=== PATIENT | male | born 1965 | race Caucasian/White ===

== ENCOUNTER 2017-12-06 11:39 | Emergency (ER) | payer BC, OTHER ==
[2017-12-06] MEDS ORDERED: NORMAL SALINE 1000 ML 1,000 ML IV ONE (12:29)
--- NOTE | 2017-12-06 12:33 | ER Document Report ---
ED Medical Screen (RME) - General Chief Complaint: Neck Pain >24hrs old Stated Complaint: NECK/ARM PAIN Time Seen by Provider: 12/06/17 12:03 Mode of Arrival: Ambulatory Information source: Patient TRAVEL OUTSIDE OF THE [place] IN LAST 30 DAYS: No - HPI Patient complains to provider of: multiple complaints Notes: 12/06/17 12:32 Patient is here with multiple complaints. States that he drinks alcohol and parties hard. Believes that he slightly dehydrated. He thinks he may have an infection. Here complaining of left shoulder and arm discomfort. No injury. He denies any chest pain or shortness of breath. States that he has been really stressed lately due to losing his mother recently. Physical exam: Nontoxic-appearing, no distress. An initial examination was made on the patient as part of the triage process, and it was determined a more comprehensive evaluation was necessary. Initial labs were ordered and patient was transferred to another provider in the ED who assumed care and finished evaluation and plan. - Related Data Allergies/Adverse Reactions: No Known Allergies Allergy (Verified 12/06/17 11:40) Past Medical History - Social History Frequency of alcohol use: 8-10 beers every day Drug Abuse: None Renal/ Medical History: Denies: Hx Peritoneal Dialysis Past Surgical History: Reports: Hx Abdominal Surgery - colon fistula repair, Hx Orthopedic Surgery - left knee - Immunizations Hx Diphtheria, Pertussis, Tetanus Vaccination: No Physical Exam - Vital signs Vitals: Temp Pulse Resp BP Pulse Ox 98.7 F 82 16 155/92 H 98 12/06/17 11:48 12/06/17 11:48 12/06/17 11:48 12/06/17 11:48 12/06/17 11:48 Course - Vital Signs Vital signs: Temp Pulse Resp BP Pulse Ox 98.7 F 82 16 155/92 H 98 12/06/17 11:48 12/06/17 11:48 12/06/17 11:48 12/06/17 11:48 12/06/17 11:48
[2017-12-06 13:22] LABS: ABSOLUTE EOSINOPHILS # (AUTO) 0.1 10^3/uL (0.0-0.6); ABSOLUTE LYMPHOCYTES (AUTO) 1.7 10^3/uL (0.5-4.7); ABSOLUTE MONOCYTES (AUTO) 0.7 10^3/uL (0.1-1.4); ABSOLUTE NEUT (AUTO) 6.3 10^3/uL (1.7-8.2); BASOPHILS % (AUTO) 0.5 % (0-2); EOSINOPHILS % (AUTO) 1.2 % (0-6); HEMATOCRIT 46.6 % (37.9-51.0); HEMOGLOBIN 15.7 g/dL (13.5-17.0); LYMPHOCYTES % (AUTO) 18.6 % (13-45); MEAN CORPUSCULAR HEMOGLOBIN 29.7 pg (27.0-33.4); MEAN CORPUSCULAR HGB CONC 33.7 g/dL (32.0-36.0); MEAN CORPUSCULAR VOLUME 88 fl (80-97); MONOCYTES % (AUTO) 8.3 % (3-13); PLATELET COUNT 192 10^3/uL (150-450); RED BLOOD COUNT 5.29 10^6/uL (4.35-5.55); RED CELL DISTRIBUTION WIDTH 13.5 % (11.5-14.0); SEGMENTED NEUTROPHILS % (AUTO) 71.4 % (42-78); TOTAL CELLS COUNTED % (AUTO) 100 %; WHITE BLOOD COUNT 8.9 10^3/uL (4.0-10.5)
--- NOTE | 2017-12-06 13:23 | RADIOLOGY REPORT (SQ) ---
EXAM DESCRIPTION: CHEST 2 VIEWS COMPLETED DATE/TIME: 12/06/2017 1:10 pm REASON FOR STUDY: left arm tingling COMPARISON: None. EXAM PARAMETERS: NUMBER OF VIEWS: two views TECHNIQUE: Digital Frontal and Lateral radiographic views of the chest acquired. RADIATION DOSE: NA LIMITATIONS: none FINDINGS: LUNGS AND PLEURA: No opacities, masses or pneumothorax. No pleural effusion. MEDIASTINUM AND HILAR STRUCTURES: No masses or contour abnormalities. HEART AND VASCULAR STRUCTURES: Heart normal size. No evidence for failure. BONES: No acute findings. HARDWARE: None in the chest. OTHER: No other significant finding. IMPRESSION: NO ACUTE RADIOGRAPHIC FINDING IN THE CHEST. TECHNICAL DOCUMENTATION: JOB ID: [id number] [employer]- All Rights Reserved Reading location - IP/workstation name: [email or web address]
[2017-12-06 13:26] LABS: APPEARANCE,URINE CLEAR; BILIRUBIN,URINE NEGATIVE (NEGATIVE); COLOR,URINE YELLOW; GLUCOSE, URINE NEGATIVE (NEGATIVE); KETONES,URINE NEGATIVE (NEGATIVE); LEUKOCYTE ESTERASE,URINE NEGATIVE (NEGATIVE); NITRITE,URINE NEGATIVE (NEGATIVE); PROTEIN,URINE NEGATIVE (NEGATIVE); UROBILINOGEN,URINE NEGATIVE mg/dL (<2.0)
[2017-12-06 13:35] LABS: ALANINE AMINOTRANSFERASE 32 U/L (21-72); ALBUMIN 4.8 g/dL (3.5-5.0); ALKALINE PHOSPHATASE 72 U/L (38-126); ANION GAP 13 (5-19); ASPARTATE AMINO TRANSFERASE 35 U/L (17-59); BILIRUBIN,DIRECT 0.3 mg/dL (0.0-0.4); BILIRUBIN,TOTAL 0.9 mg/dL (0.2-1.3); BLOOD UREA NITROGEN 10 mg/dL (7-20); CALCIUM 10.3 mg/dL (8.4-10.2); CARBON DIOXIDE 29 mmol/L (22-30); CHLORIDE 102 mmol/L (98-107); GLUCOSE 103 mg/dL (75-110); LIPASE 84.7 U/L (23-300); POTASSIUM 4.6 mmol/L (3.6-5.0); SODIUM 144.3 mmol/L (137-145); TOTAL PROTEIN 7.8 g/dL (6.3-8.2)
--- NOTE | 2017-12-06 13:43 | ER Document Report ---
ED Neck/Back Problem - General Chief Complaint: Neck Pain >24hrs old Stated Complaint: NECK/ARM PAIN Time Seen by Provider: 12/06/17 12:03 Mode of Arrival: Ambulatory Information source: Patient Notes: Pt is a 52 year old male who presents to the ER today for left arm pain starting yesterday after a night of heavy drinking. Pt states that he thinks he' s dehydrated. He states he's been under a lot of stress lately because his mother just and so "sometimes I alliance party hard." He denies chest pain, headache, blurred vision, cough, fever, chills, history of cardiac disease, injury to the arm. He denies numbness/tingling. TRAVEL OUTSIDE OF THE [place] IN LAST 30 DAYS: No - Related Data Allergies/Adverse Reactions: No Known Allergies Allergy (Verified 12/06/17 11:40) Past Medical History - General Information source: Patient - Social History Smoking Status: Never Smoker Frequency of alcohol use: 8-10 beers every day Drug Abuse: None Family History: Reviewed & Not Pertinent Patient has suicidal ideation: No Patient has homicidal ideation: No Renal/ Medical History: Denies: Hx Peritoneal Dialysis Past Surgical History: Reports: Hx Abdominal Surgery - colon fistula repair, Hx Orthopedic Surgery - left knee - Immunizations Hx Diphtheria, Pertussis, Tetanus Vaccination: No Review of Systems - Review of Systems Constitutional: No symptoms reported EENT: No symptoms reported Cardiovascular: No symptoms reported Respiratory: No symptoms reported Gastrointestinal: No symptoms reported Genitourinary: No symptoms reported Male Genitourinary: No symptoms reported Musculoskeletal: See HPI Skin: No symptoms reported Hematologic/Lymphatic: No symptoms reported Neurological/Psychological: No symptoms reported Physical Exam - Vital signs Vitals: Temp Pulse Resp BP Pulse Ox 98.7 F 82 16 155/92 H 98 12/06/17 11:48 12/06/17 11:48 12/06/17 11:48 12/06/17 11:48 12/06/17 11:48 - Notes Notes: PHYSICAL EXAMINATION: GENERAL: anxious appearing, but in no acute distress. HEAD: Atraumatic, normocephalic. EYES: pupils equal round and reactive to light, extraocular movements intact, sclera anicteric, conjunctiva are normal. ENT: ear canals without erythema or foreign body, TMs pearly ball with good bony landmarks, nares patent, oropharynx clear without exudates. Moist mucous membranes. Airway patent NECK: Normal range of motion, supple without lymphadenopathy LUNGS: CTAB and equal. No wheezes rales or rhonchi. HEART: Regular rate and rhythm without murmurs EXTREMITIES: no tenderness to the left arm at all, Normal range of motion, no pitting edema. No cyanosis. NEUROLOGICAL: Cranial nerves grossly intact. Normal sensory/motor exams. Good and equal strength bilaterally PSYCH: mildly anxious SKIN: Warm, Dry, normal turgor, no rashes or lesions noted Course - Re-evaluation Re-evalutation: 12/06/17 23:08 chest x ray, labwork and EKG all reveal no acute pathology/emergency today. Pt seems much better and reports "feeling better" after IV fluids. He continues to state "I think I was just dehydrated." - Vital Signs Vital signs: Temp Pulse Resp BP Pulse Ox 98.4 F 86 16 127/81 H 97 12/06/17 14:06 12/06/17 14:06 12/06/17 11:48 12/06/17 14:06 12/06/17 14:06 - Laboratory Result Diagrams: 12/06/17 12:47 12/06/17 12:47 Laboratory results interpreted by me: 12/06/17 12:47 Calcium 10.3 H Discharge - Discharge Clinical Impression: Left arm pain Condition: Stable Disposition: HOME, SELF-CARE Additional Instructions: Return immediately for any new or worsening symptoms. Follow up with primary care provider, call tomorrow to make followup appointment.
[2017-12-06 14:08] VITALS: BP 127/81
--- NOTE | 2017-12-07 07:27 | EKG REPORT ---
SEVERITY:- NORMAL ECG - SINUS RHYTHM : Confirmed by: Montez Glover MD 07-Dec-2017 07:26:56
== END 2017-12-06 14:23 | disposition home or self-care (01) ==
LOC: ER 11:39
DX: M79.602 Pain in left arm (principal)
CPT/HCPCS: 93005; 99284; 96360; 36415; 83690; 85025; 80053; 81001; 71046; 93010; J7030